=== PATIENT | male | born 1945 | race Hispanic/Latino ===

== ENCOUNTER 2018-11-21 19:37 | Inpatient (IN) | payer OTHER ==
[~2018-11-21] VITALS: Ht 157.5 cm; Wt 54.4 kg
[2018-11-21] MEDS ORDERED: VANCOMYCIN 1GM/NS 250 ML 250 ML IV STA (20:21)
[2018-11-21] MEDS ORDERED: SODIUM CHLORIDE 0.9% 1000ML 1,000 ML IV STA (20:21)
[2018-11-21 20:45] LABS: BASOPHILS # (AUTO) 0.1 (0.0-0.1); BASOPHILS % 0.5 % (0.0-1.0); EOSINOPHILS # (AUTO) 0.2 (0.0-0.4); EOSINOPHILS % 2.2 % (0.0-6.0); HEMATOCRIT 19.8 % (38.2-49.6); LYMPHOCYTES % 9.4 % (18.0-39.1); MEAN CORPUSCULAR HEMOGLOBIN 13.8 pg (28-32); MEAN CORPUSCULAR HGB CONC 23.7 g/dL (31-35); MEAN CORPUSCULAR VOLUME 58.1 fL (81-99); MONOCYTES # (AUTO) 0.5 (0.2-0.8); NEUTROPHILS # (AUTO) 8.8 (2.1-6.9); NEUTROPHILS % 82.3 % (38.7-80.0); PLATELET COUNT 481 x10e3/uL (140-360); RED BLOOD COUNT 3.41 x10e6/uL (4.3-5.7); RED CELL DISTRIBUTION WIDTH 22.6 % (11.7-14.4)
[2018-11-21 20:50] LABS: HEMOGLOBIN 4.7 g/dL (14.0-18.0)
[2018-11-21 20:59] LABS: ALANINE AMINOTRANSFERASE 6 IU/L (0-55); ALBUMIN 3.6 g/dL (3.5-5.0); ALKALINE PHOSPHATASE 54 IU/L (40-150); ANION GAP 17.2 mmol/L (8-16); BLOOD UREA NITROGEN 14 mg/dL (7-26); BUN/CREATININE RATIO 16 (6-25); CALCIUM 9.5 mg/dL (8.4-10.2); CARBON DIOXIDE 22 mmol/L (22-29); CHLORIDE 104 mmol/L (98-107); CREATININE, SERUM 0.88 mg/dL (0.72-1.25); EST GLOMERULAR FILTRATION RATE > 60 ML/MIN (60-); GLUCOSE 131 mg/dL (74-118); POTASSIUM 3.2 mmol/L (3.5-5.1); SODIUM 140 mmol/L (136-145)
[2018-11-21] MEDS ORDERED: SODIUM CHLORIDE 0.9% 250ML 250 ML IV ONE (21:00)
--- NOTE | 2018-11-21 21:01 | NUR ---
CONSENT OBTAINED FOR TRANSFUSION OF BLOOD PRODUCTS
[2018-11-21] MEDS ORDERED: SODIUM CHLORIDE 0.9% 50ML 50 ML ONE (21:08)
[2018-11-21] MEDS ORDERED: IOPAMIDOL 370 MG/ML 200 ML INFUS..BTL INJ ONE (21:08)
--- NOTE | 2018-11-21 21:44 | Diagnostic Imaging Report ---
Examination: Single AP view of the chest. COMPARISON: None. INDICATION: Cough DISCUSSION: Lines/tubes: None. Lungs: The lungs are well inflated and clear. No pneumonia or pulmonary edema. Pleura: No pleural effusion or pneumothorax. Heart and mediastinum: The heart and the mediastinum are unremarkable. Bones and soft tissues: No acute bony abnormalities. IMPRESSION: 1. No acute cardiopulmonary abnormalities. Signed by: Dr. Brandan Waters M.D. on 11/21/2018 9:41 PM
[2018-11-21 21:45] LABS: EOSINOPHILS % (MANUAL) 5 % (0-7); LYMPHOCYTES % (MANUAL) 8 % (19-48); MONOCYTES % (MANUAL) 5 % (3.4-9.0); NEUTROPHILS % (MANUAL) 82 % (40-74)
[2018-11-21 21:46] LABS: HYPOCHROMASIA MARKED
[2018-11-21 21:47] LABS: ANISOCYTOSIS MODERATE; POIKILOCYTOSIS SLIGHT
[2018-11-21 21:48] LABS: PLATELET ESTIMATE MODERATELY INCREASED; PLATELET MORPHOLOGY COMMENT FEW LARGE
--- NOTE | 2018-11-21 22:02 | Diagnostic Imaging Report ---
EXAMINATION: CT of the abdomen and pelvis with contrast. TECHNIQUE: Helical CT images of the abdomen and pelvis were performed from the lung bases to the lesser trochanters after the intravenous administration of 100 cc of Omnipaque 300 and the oral administration of none. Coronal and sagittal reformatted images were obtained. Dose modulation, iterative reconstruction, and/or weight based adjustment of the mA/kV was utilized to reduce the radiation dose to as low as reasonably achievable. COMPARISON: None. CLINICAL HISTORY:Testicular infection DISCUSSION: ABDOMEN/PELVIS: LOWER THORAX:Emphysematous change. HEPATOBILIARY: No focal hepatic lesions. No intra-or extrahepatic biliary ductal dilation. The gallbladder is normal. SPLEEN: No splenomegaly. PANCREAS: No focal masses or ductal dilatation. ADRENALS: No adrenal nodules. KIDNEYS/URETERS: No hydronephrosis, stones, or solid mass lesions. PELVIC ORGANS/BLADDER: The bladder is normal. Bilateral hydroceles. Scrotal/inguinal skin thickening. PERITONEUM/RETROPERITONEUM: No free air or fluid. LYMPH NODES: No intra-abdominal, retroperitoneal, pelvic or inguinal lymphadenopathy. VESSELS: Vascular calcifications. GI TRACT: Distention of the rectum with large stool. BONES AND SOFT TISSUE: Right femoral neck fixation. No acute fracture. Lower lumbar spondyloarthropathy. No soft tissue abnormalities. IMPRESSION: No acute intra-abdominal or pelvic CT finding. Scrotal/inguinal skin thickening may reflect cellulitis. Additional simple hydroceles. Distention of the rectum with stool, may be impacted. Signed by: Dr. Brandan Waters M.D. on 11/21/2018 9:59 PM
[2018-11-21] MEDS ORDERED: CEFEPIME 1GM/NS 0.9% 50 ML 50 ML IV STA (22:17)
[2018-11-21 22:22] LABS: BILIRUBIN,URINE NEGATIVE (NEGATIVE); CLARITY,URINE SL CLOUDY (CLEAR); COLOR,URINE YELLOW (YELLOW); KETONES,URINE NEGATIVE (NEGATIVE); LEUKOCYTE ESTERASE ,URINE LARGE (NEGATIVE); NITRITE,URINE NEGATIVE (NEGATIVE); PROTEIN,URINE DIPSTICK NEGATIVE (NEGATIVE); URINE UROBILINOGEN 0.2 mg/dL (0.2 - 1)
[2018-11-21] MEDS ORDERED: LACTULOSE SYRUP 20 GM/30 ML UDC PO PRN (22:30)
[2018-11-21] MEDS ORDERED: CITRATE OF MAGNESIA 300ML BOTTLE PO ONE (22:30)
[2018-11-21 22:37] LABS: BACTERIA,URINE FEW /HPF; WBC,URINE (MAN) >50 /HPF (0-5)
--- OUTSIDE RECORDS SUMMARY | 2018-11-21 22:47 | XMS REPORT ---
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 Allergies, Adverse Reactions, Alerts This patient has no known allergies or adverse reactions. Medications This patient has no known medications. Results Test Description Test Time Test Comments Text Results Atomic Results Result Comments CT ABDOMEN/PELVIS W 2018-11-21 21:46:00 [place] [address] Patient Name: DAKOTAH AUGUSTIN MR #: [id number] : 1945 Age/Sex: 73/M Req #: [id number] Adm Physician: Ordered by: ALBERTO DUARTE MD Report #: [id number] Location: ER Room/Bed: Procedure: [id number] CT/CT ABDOMEN/PELVIS W Exam Date: 11/21/18 Exam Time: 2124 REPORT STATUS: Signed EXAMINATION: CT of the abdomen and pelvis with contras t. TECHNIQUE: Helical CT images of the abdomen and pelvis were performed from the lung bases to the lesser trochanters after the intravenous administration of 100 cc of Omnipaque 300 and the oral administration of none. Coronal and sagittal reformatted images were obtained. Dose modulation, iterative reconstruction, and/or weight based adjustment of the mA/kV was utilized to reduce the radiation dose to as low as reasonably achievable. COMPARISON: None. CLINICAL HISTORY:Testicular infection DISCUSSION: ABDOMEN/PELVIS: LOWER THORAX:Emphysematous change. HEPATOBILIARY: No focal hepatic lesions. No intra-or extrahepatic biliary ductal dilation. The gallbladder is normal. SPLEEN: No splenomegaly. PANCREAS: No focal masses or ductal dilatation. ADRENALS: No adrenal nodules. KIDNEYS/URETERS: No hydronephrosis, stones, or solid mass lesions. PELVIC ORGANS/BLADDER: The bladder is normal. Bilateral hydroceles. Scr otal/inguinal skin thickening. PERITONEUM/RETROPERITONEUM: No free air or fluid. LYMPH NODES: No intra-abdominal, retroperitoneal, pelvic or inguinal lymphadenopathy. VESSELS: Vascular calcifications. GI TRACT: Distention of the rectum with large stool. BONES AND SOFT TISSUE: Right femoral neck fixation. No acute fracture. Lower lumbar spondyloarthropathy. No soft tissue abnormalities. IMPRESSION: No acute intra-abdominal or pelvic CT finding. Scrotal/inguinal skin thickening may reflect cellulitis. Additional simple hydroceles. Distention of the rectum with stool, may be impacted. Signed by: Dr. Fahad Saab M.D. on 11/21/2018 9:59 PM Dictated By: FAHAD SAAB MD 58 Transcribed By: CAESAR on 11/21/182158 COPY TO: ALBETRO DUARTE MD CHEST SINGLE (PORTABLE) 2018-11-21 21:40:00 [place] [address] Patient Name: DAKOTAH AUGUSTIN MR #: [id number] : 1945 Age/Sex: 73/M Req #: [id number] Adm Physician: Ordered by: ALBERTO DUARTE MD Report #: [id number] Location: ER Room/Bed: Procedure: [id number] DX/CHEST SINGLE (PORTABLE) Exam Date: 11/21/18 Exam Time: 2119 REPORT STATUS: Signed Examination: Single AP view of the chest. COM PARISON: None. INDICATION: Cough DISCUSSION: Lines/tubes: None. Lungs: The lungs are well inflated and clear. No pneumonia or pulmonary edema. Pleura: No pleural effusion or pneumothorax. Heart and mediastinum: The heart and the mediastinum are unremarkable. Bones and soft tissues: No acute bony abnormalities. IMPRESSION: 1. No acute cardiopulmonary abnormalities. Signed by: Dr. Fahad Saab M.D. on 11/21/2018 9:41 PM Dictated By: FAHAD SAAB MD 40 Transcribed By: CAESAR on 11/21/182140 COPY TO: ALBERTO DUARTE MD
[2018-11-21] MEDS ORDERED: CLOPIDOGREL75 MG PO (23:13)
[2018-11-21] MEDS ORDERED: MULTIVITAMINS1 EAC7 PO (23:13)
[2018-11-21] MEDS ORDERED: SIMVASTATIN40 MG PO (23:13)
[2018-11-21 23:29] VITALS: BP 159/70
[2018-11-21 23:47] VITALS: BP 159/70
[2018-11-22] VITALS (8 sets, daily range): BP systolic 135–159; BP diastolic 64–82
[2018-11-22] MEDS: SODIUM CHLORIDE 0.9% 1000ML 1,000 ML IV SCH ×2 (00:19→05:52)
[2018-11-22] MEDS ORDERED: SODIUM CHLORIDE 0.9% 250ML 250 ML ONE ×3 (01:10→11:24)
--- NOTE | 2018-11-22 07:40 | NUR ---
PATIENT IS AWAKE, ALERT, AND IN STABLE CONDITION WITH NO S/S RESPIRATORY DISTRESS. PATIENT DENIES PAIN. BLOOD TRANSFUSION CURRENTLY INFUSING. PATIENT'S SCROTUM AREA IS RED AND INFLAMED. PATIENT HAD A BM THIS MORNING- PATIENT CLEANED, DIAPER APPLIED, ALLEVYN PADS APPLIED TO BILATERAL BUTTOCKS (BLANCHABLE REDNESS NOTED), AND PATIENT REPOSITION IN BED. AIR PUMP APPLIED. BED ALARM APPLIED. CALL LIGHT IS WITHIN REACH OF PATIENT AND PATIENT INFORMED TO CALL FOR ASSISTANCE NEEDED.
[2018-11-22] MEDS: FLUCONAZOLE 100 MG/NS 50 ML 50 ML IV SCH (08:27)
[2018-11-22] MEDS ORDERED: VANCOMYCIN 1GM/NS 250 ML 250 ML IV SCH (09:00)
[2018-11-22 10:37] LABS: BASOPHILS # (AUTO) 0.1 (0.0-0.1); BASOPHILS % 0.5 % (0.0-1.0); EOSINOPHILS # (AUTO) 0.2 (0.0-0.4); EOSINOPHILS % 2.3 % (0.0-6.0); HEMATOCRIT 21.5 % (38.2-49.6); LYMPHOCYTES # (AUTO) 0.8 (1.0-3.2); LYMPHOCYTES % 7.3 % (18.0-39.1); MEAN CORPUSCULAR HEMOGLOBIN 19.6 pg (28-32); MEAN CORPUSCULAR HGB CONC 28.4 g/dL (31-35); MEAN CORPUSCULAR VOLUME 68.9 fL (81-99); MONOCYTES # (AUTO) 0.7 (0.2-0.8); MONOCYTES % 6.5 % (4.4-11.3); NEUTROPHILS # (AUTO) 8.8 (2.1-6.9); NEUTROPHILS % 82.8 % (38.7-80.0); PLATELET COUNT 339 x10e3/uL (140-360); RED BLOOD COUNT 3.12 x10e6/uL (4.3-5.7); RED CELL DISTRIBUTION WIDTH 31.4 % (11.7-14.4)
[2018-11-22 10:42] LABS: HEMOGLOBIN 6.1 g/dL (14.0-18.0)
[2018-11-22 10:53] LABS: ALBUMIN 2.9 g/dL (3.5-5.0); ALKALINE PHOSPHATASE 41 IU/L (40-150); ANION GAP 10.3 mmol/L (8-16); BLOOD UREA NITROGEN 26 mg/dL (7-26); BUN/CREATININE RATIO 40 (6-25); CALCIUM 8.1 mg/dL (8.4-10.2); CARBON DIOXIDE 23 mmol/L (22-29); CHLORIDE 111 mmol/L (98-107); CREATININE, SERUM 0.65 mg/dL (0.72-1.25); EST GLOMERULAR FILTRATION RATE > 60 ML/MIN (60-); GLUCOSE 103 mg/dL (74-118); POTASSIUM 3.3 mmol/L (3.5-5.1); SODIUM 141 mmol/L (136-145)
[2018-11-22 10:56] LABS: ALANINE AMINOTRANSFERASE < 6 IU/L (0-55)
--- NOTE | 2018-11-22 11:05 | NUR ---
RECEIVED ORDER FROM DR. BOSWELL FOR ONE UNIT OF PRBC AND 40MEQ OF KDUR x1
[2018-11-22] MEDS ORDERED: POTASSIUM CHLORIDE 20 MEQ TAB CR PO NR (11:15)
[2018-11-22] MEDS ORDERED: SODIUM CHLORIDE 0.9% 250ML 250 ML IV NR (11:15)
[2018-11-22] MEDS: PANTOPRAZOLE SOD 40 MG TABEC PO SCH (12:48)
[2018-11-22] MEDS ORDERED: PIPER-TAZ 3.375 GM 50 ML IV SCH (14:00)
--- NOTE | 2018-11-22 15:22 | Consultation ---
DATE OF CONSULTATION: 11/22/2018 Urology consultation Consult was called by Dr. Mcclure. CHIEF COMPLAINT AND REASON FOR CONSULTATION: Scrotal cellulitis. HISTORY OF PRESENT ILLNESS: Jose Blackburn is a 73-year-old male, admitted to the hospital on November 21 at 7:[address] Hurtado in the emergency room with a diagnosis of infection in testicles with no call to urologist. Urologic consultation was requested the following morning. The patient denied dysuria. He is a total care patient wearing diapers. No hematuria noted. PAST MEDICAL HISTORY: Unknown. There is no ER note on the chart. The patient has blood transfusion hanging. PAST SURGICAL HISTORY: Unknown. MEDICATIONS: Please see MAR. Most notable for Plavix. ALLERGIES: UNKNOWN. REVIEW OF SYSTEMS: A 03/06 organ systems unable to obtain secondary to the patient inability. PHYSICAL EXAMINATION: GENERAL: Cachectic elderly man in no acute distress. VITAL SIGNS: Currently, he is afebrile with stable vital signs. HEENT: Sclerae anicteric. NECK: Supple. BACK: Without costovertebral angle tenderness bilaterally. ABDOMEN: Soft, it is nontender, it is nondistended. : The patient is in diapers, wet. The scrotum is erythematous with blisters. Severe case of diaper rash. EXTREMITIES: Contracted. No edema. NEURO: Does not move extremities to command. PSYCH: Unable to assess. SKIN: Pale. PERTINENT LABORATORY DATA: Hemoglobin 4.7, hematocrit 19, platelet count 481,000. White blood cell count 10,620. Sodium 140, potassium 3.2, chloride 104, bicarb 22, BUN 14, creatinine 0.8, glucose 131, lactic acid 31. Urinalysis 6 to 10 reds, greater than [address] scan revealing bilateral hydroceles, scrotal wall thickening, right femoral neck fixation. IMPRESSION: 1. Severe scrotal cellulitis. 2. Urinary incontinence. 3. Urinary tract infection. 4. Microscopic hematuria. 5. Medically-induced coagulopathy. 6. Profound anemia. 7. Hypokalemia. 8. Bilateral hydroceles. PLAN: The patient will remain on broad-spectrum antibiotics, agree with this. We will continue these antibiotics until specific MRI can be performed. Defer the source of anemia to primary service. We will be happy to follow along with you. MD FLORES Burciaga/VINH /[id number] cc: Alana Mcclure MD
[2018-11-22] MEDS: IRON SUCROSE 100 MG in SODIUM CHLORIDE 0.9% 100 ML 100 ML IV SCH (15:30)
[2018-11-22] MEDS: ALBUTEROL/IPRATROPIUM 3 ML NEB NEB SCH ×2 (15:50→20:30)
[2018-11-22] MEDS: PIPER-TAZ 3.375 GM 50 ML IV SCH (16:48)
[2018-11-22] MEDS: LACTOBACILLUS ACIDOPHILUS CAPSULE PO SCH (16:48)
--- NOTE | 2018-11-22 19:10 | NUR ---
PATIENT IS RESTING IN BED- IN STABLE CONDITION WITH NO S/S RESPIRATORY DISTRESS. NO PAIN VOICED. DIAPER APPLIED. URINAL AVAILABLE NEAR BEDSIDE. BED ALARM ON. CALL LIGHT IS WITHIN REACH, PATIENT INSTRUCTED TO CALL FOR ASSISTANCE NEEDED. BEDSIDE REPORT GIVEN TO ONCOMING NURSE.
[2018-11-22] MEDS: SIMVASTATIN 40 MG TAB PO SCH (20:11)
[2018-11-22] MEDS: VANCOMYCIN 1GM/NS 250 ML 250 ML IV SCH (20:11)
[2018-11-22] MEDS: BALSAM PERU/CASTOR OIL 60 GM OINT...G. TP SCH (22:58)
[2018-11-23] VITALS (8 sets, daily range): BP systolic 126–164; BP diastolic 61–83
[2018-11-23] MEDS: PIPER-TAZ 3.375 GM 50 ML IV SCH ×4 (01:40→21:41)
[2018-11-23 05:52] LABS: BASOPHILS # (AUTO) 0.1 (0.0-0.1); BASOPHILS % 0.7 % (0.0-1.0); EOSINOPHILS # (AUTO) 0.6 (0.0-0.4); EOSINOPHILS % 5.6 % (0.0-6.0); HEMATOCRIT 23.5 % (38.2-49.6); LYMPHOCYTES % 10.4 % (18.0-39.1); MEAN CORPUSCULAR HGB CONC 29.8 g/dL (31-35); MEAN CORPUSCULAR VOLUME 70.6 fL (81-99); MONOCYTES # (AUTO) 0.8 (0.2-0.8); MONOCYTES % 7.6 % (4.4-11.3); NEUTROPHILS # (AUTO) 7.4 (2.1-6.9); NEUTROPHILS % 75.4 % (38.7-80.0); PLATELET COUNT 309 x10e3/uL (140-360); RED BLOOD COUNT 3.33 x10e6/uL (4.3-5.7); RED CELL DISTRIBUTION WIDTH 30.7 % (11.7-14.4)
[2018-11-23 06:18] LABS: ANION GAP 9.2 mmol/L (8-16); BLOOD UREA NITROGEN 11 mg/dL (7-26); BUN/CREATININE RATIO 17 (6-25); CALCIUM 7.8 mg/dL (8.4-10.2); CARBON DIOXIDE 24 mmol/L (22-29); CHLORIDE 109 mmol/L (98-107); CREATININE, SERUM 0.65 mg/dL (0.72-1.25); EST GLOMERULAR FILTRATION RATE > 60 ML/MIN (60-); GLUCOSE 88 mg/dL (74-118); MAGNESIUM 2.3 MG/DL (1.3-2.1); POTASSIUM 3.2 mmol/L (3.5-5.1); SODIUM 139 mmol/L (136-145)
--- NOTE | 2018-11-23 06:36 | NUR ---
Spoke with Dr. Rascon regarding hgb and hct. No orders received.
[2018-11-23] MEDS: ALBUTEROL/IPRATROPIUM 3 ML NEB NEB SCH ×4 (07:01→19:15)
--- NOTE | 2018-11-23 07:30 | NUR ---
REC'D PATIENT AAOX2, REC'V BREATHING TREATMENT AND TOLERATING WELL, ON HIGH-GABRIEL'S POSITION, NO S/S OF DISTRESS. IV TO THE LEFT FA DRY AND INTACT AND PATENT.
[2018-11-23] MEDS: PANTOPRAZOLE SOD 40 MG TABEC PO SCH (08:04)
[2018-11-23] MEDS: LACTOBACILLUS ACIDOPHILUS CAPSULE PO SCH ×2 (08:04→17:02)
[2018-11-23] MEDS: MULTIVITAMINS/MINERALS TAB PO SCH (08:04)
[2018-11-23] MEDS: FLUCONAZOLE 100 MG/NS 50 ML 50 ML IV SCH (08:04)
[2018-11-23] MEDS: BALSAM PERU/CASTOR OIL 60 GM OINT...G. TP SCH ×2 (08:09→17:02)
--- NOTE | 2018-11-23 08:13 | NUR ---
DR. PICKENS NOTIFIED NURSE THAT PT REFUSED TO HAVE A -SCOPY PROCEDURE.
[2018-11-23] MEDS: VANCOMYCIN 1GM/NS 250 ML 250 ML IV SCH (09:08)
--- NOTE | 2018-11-23 09:10 | NUR ---
CHANGED PATIENT'S BRIEF AND APPLIED TREATMENT OINTMENT FOR SCROTUM REDNESS. REPOSITIONED HEEL PROTECTORS. ELEVATED HOB TO HIGH-FOWLERS POSITION. BED IN LOWEST POSITION, SIDE RAILS UP X2, AND CALL MARTIN WITHIN REACH.
[2018-11-23] MEDS ORDERED: POTASSIUM CHLORIDE 20 MEQ TAB CR PO ONE (12:00)
[2018-11-23] MEDS: IRON SUCROSE 100 MG in SODIUM CHLORIDE 0.9% 100 ML 100 ML IV SCH (13:13)
--- NOTE | 2018-11-23 14:27 | Consultation ---
DATE OF CONSULTATION: 11/23/2018 HISTORY OF PRESENT ILLNESS: The patient is a 73-year-old, who presented to the hospital because of problems with infections in his testicle. The patient, however, was found to have anemia with hemoglobin as low as 4.7 on admission with low MCV. He received blood transfusions and hemoglobin went up to 7 and he said that he does not have any abdominal pain, does not have any nausea or vomiting and he said that he did have a colonoscopy in the past, which was supposedly normal. He did have a CAT scan of the abdomen and pelvis, which only shows scrotal inguinal area of cellulitis and otherwise is unremarkable. PAST MEDICAL HISTORY: Significant for history of hypercholesterolemia, history of COPD. MEDICATIONS: Currently is on Protonix, DuoNeb, Zocor, also on antibiotic and has been receiving some iron. ALLERGIES: NONE. SOCIAL HISTORY: No alcohol use. FAMILY HISTORY: Noncontributory. REVIEW OF SYSTEMS: Denies any chest pain or shortness of breath. Denies any dysphagia, odynophagia. Denies any dysuria, hematuria, or any syncopal episodes. PHYSICAL EXAMINATION: GENERAL: Awake, alert, appears to be stable, not in acute distress at this point. VITAL SIGNS: Afebrile currently with stable vital signs. HEAD, EYES, EARS, NOSE, AND THROAT: Normocephalic, atraumatic. Sclera is anicteric. NECK: Supple. HEART: Regular. LUNGS: Clear. ABDOMEN: Soft. There is no distention at this point and is nontender. EXTREMITIES: No cyanosis. No clubbing. LAB VALUES: As of this morning, potassium 3.2, BUN and creatinine 11 and 0.65. WBC of 9.85, hemoglobin of 7 and hematocrit of 23.5, MCV of 70.6. IMPRESSION: 1. Iron deficiency anemia. There is no sign of bleeding at this point. The patient refused endoscopy at this point. 2. Testicular cellulitis or infection. RECOMMENDATION: Continue antibiotic at this point, follow labs, watch for bleeding. He will need to have endoscopy and as an outpatient, possibly for both EGD and colonoscopy iron deficiency anemia. Juan Manuel Santoro MD DHJeff/MODL /[id number] cc: Alana Mcclure MD
--- NOTE | 2018-11-23 14:41 | NUR ---
PATIENT IS ASLEEP WITH EYES CLOSED. AND UNLABORED BREATHING. AT THE BEDSIDE. SIDE RAILS UP X2, BED IN LOWEST POSITION, AND CALL MARTIN WITHIN REACH.
--- NOTE | 2018-11-23 15:19 | NUR ---
Nutrition Intervention Note RD Recommendation(s) for Physician: The patient meets criteria for MODERATE protein-calorie malnutrition. -Continue current diet as ordered -Pt refused any oral nutrition supplements Plan of Care: RD following, monitoring for tolerance and adequacy Nutrition reason for involvement: Nutrition Risk Trigger MST RD Assessment 11/23 73yo M, who was admitted for testicles infection. Visited pt in the room. Per , pt has always been a small eater. Pt eats very little at home as well. This has been going on for many years. His weight has been stable within the last year. Pt has no teeth and requests for softer foods. Downgraded diet texture to mechanical soft on HT. No swallowing difficulty noted. Son has been buying Ensure for pt to drink at home but pt doesnt drink any of those. No history of CKD, CAD or DM per . Pt appears to be thin with moderate muscle and fat loss upon NFPA (see below). Will continue to monitor and follow. Principal Problems/Diagnoses: Anemia, testicular cellulitis PMH: hypercholesterolemia, COPD GI: abdomen flat, soft, LBM 11/23 Skin: no pressure wound noted Labs: (11/23) K 3.2 L, Creatinine 0.65 L, Ca 7.8 L, Mg 2.3 H Meds: (11/23) MVi w/minerals, protonix, probiotics Ht: 62in Wt: 120lb BMI: 21.9kg/m2 IBW: 118lb +/- 10% Malnutrition Evaluation (11/23) The patient meets criteria for MODERATE protein-calorie malnutrition. Energy intake: <75% of estimated energy requirements for >3 months Weight loss: Stable weight; pt is thin his whole life. Fat loss: Moderate orbital with dark capitan grande and somewhat hollow, apparent ribs, protusion of clavicle Muscle loss: Moderate squaring of shoulder, temporal depression Supporting Evidence: Fluid accumulation: None Functional Status: no changes Nutrition Prescription (Diet Order): cardiac diet Estimated Nutritional Needs: Calories: 1350 1620kcal(25-30kcal/kg/d) Weight used : CBW Protein: 81 - 108g (1.5-2g/kg/d) Weight used: CBW Diet Adequacy: Not meeting calorie needs, Not meeting protein needs Diet Education Needs Assessment: Diet education not indicated. Nutrition Care Level: low Nutrition Diagnosis: Moderate malnutrition related to inadequate energy intake as evidenced by <75% of estimated energy requirements for >3 months and moderate fat/ muscle loss upon NFPA. Goal: Patient will meet 75-100% of estimated needs by follow up Progress: n/a Interventions: Modified diet Monitoring/Evaluation: Total energy intake, Total protein intake, Modified diet, Weight change Signed: Karla Garcia MS, RD, LD
[2018-11-23] MEDS: NYSTATIN 15 GM POWDER UD BTL TOP SCH (17:02)
--- NOTE | 2018-11-23 17:30 | NUR ---
WOUND CARE PERFORMED TO PERINEAL AREA/SCROTUM
--- NOTE | 2018-11-23 17:42 | NUR ---
PATIENT IS EATING HER DINNER, NO S/S OF DISTRESS, STATES THAT HER PAIN HAS DECREASED AFTER PAIN MEDICATION ADMINISTRATION. FAMILY AT THE BEDSIDE. SIDE RAILS UP X2, BED IN LOWEST POSITION, CALL MARTIN WITHIN REACH. Addendum: 11/23/18 at 1749 by DERRICK WILL RN DOCUMENTATION DONE ON WRONG PATIENT.
--- NOTE | 2018-11-23 17:49 | NUR ---
PATIENT IS UP ON HIGH-FOWLERS POSITION, IS AT THE BEDSIDE, NO S/S OF DISTRESS. BED IN LOWEST POSITION, SIDE RAILS UP X2, AND CALL MARTIN WITHIN REACH.
--- NOTE | 2018-11-23 18:50 | NUR ---
Bedside rounds completed with morning nurse. Pt alert and orient to name. Lying in bed HOB 30 degrees. Denies pain at this time. Asked to empty urinal, 100 ml urine yellow without odor. Call ahumada within reach. Bed low and locked. Will continue to monitor.
[2018-11-23] MEDS: SIMVASTATIN 40 MG TAB PO SCH (21:41)
[2018-11-24] VITALS (7 sets, daily range): BP systolic 141–183; BP diastolic 65–81
[2018-11-24 05:22] LABS: BASOPHILS # (AUTO) 0.1 (0.0-0.1); BASOPHILS % 1.2 % (0.0-1.0); EOSINOPHILS # (AUTO) 0.8 (0.0-0.4); EOSINOPHILS % 10.5 % (0.0-6.0); HEMATOCRIT 25.4 % (38.2-49.6); HEMOGLOBIN 7.3 g/dL (14.0-18.0); LYMPHOCYTES % 13.3 % (18.0-39.1); MEAN CORPUSCULAR HEMOGLOBIN 20.7 pg (28-32); MEAN CORPUSCULAR HGB CONC 28.7 g/dL (31-35); MEAN CORPUSCULAR VOLUME 72.2 fL (81-99); MONOCYTES # (AUTO) 0.6 (0.2-0.8); MONOCYTES % 7.7 % (4.4-11.3); NEUTROPHILS # (AUTO) 5.1 (2.1-6.9); NEUTROPHILS % 66.8 % (38.7-80.0); PLATELET COUNT 305 x10e3/uL (140-360); RED BLOOD COUNT 3.52 x10e6/uL (4.3-5.7); RED CELL DISTRIBUTION WIDTH 31.6 % (11.7-14.4)
[2018-11-24 05:44] LABS: ANION GAP 8.4 mmol/L (8-16); BLOOD UREA NITROGEN 7 mg/dL (7-26); BUN/CREATININE RATIO 10 (6-25); CALCIUM 8.1 mg/dL (8.4-10.2); CARBON DIOXIDE 25 mmol/L (22-29); CHLORIDE 107 mmol/L (98-107); CHOL/HDL RATIO 2.3 (3.9-4.7); CHOLESTEROL 90 MD/DL (0-199); CREATININE, SERUM 0.72 mg/dL (0.72-1.25); EST GLOMERULAR FILTRATION RATE > 60 ML/MIN (60-); GLUCOSE 78 mg/dL (74-118); HDL CHOLESTEROL 40 MG/DL (40-60); LDL CHOLESTEROL 42 MG/DL (60-130); POTASSIUM 3.4 mmol/L (3.5-5.1); SODIUM 137 mmol/L (136-145); TRIGLYCERIDES 42 MG/DL (0-149)
[2018-11-24] MEDS: PIPER-TAZ 3.375 GM 50 ML IV SCH ×3 (06:00→22:04)
[2018-11-24] MEDS: ALBUTEROL/IPRATROPIUM 3 ML NEB NEB SCH (06:58)
--- NOTE | 2018-11-24 07:15 | NUR ---
Bedside rounding completed with the off-going nurse and the pt. denies pain or discomfort at this time.
[2018-11-24] MEDS: PANTOPRAZOLE SOD 40 MG TABEC PO SCH (07:30)
[2018-11-24 08:02] LABS: EOSINOPHILS % (MANUAL) 10 % (0-7); LYMPHOCYTES % (MANUAL) 17 % (19-48); MONOCYTES % (MANUAL) 10 % (3.4-9.0); NEUTROPHILS % (MANUAL) 63 % (40-74); PLATELET ESTIMATE ADEQUATE; PLATELET MORPHOLOGY COMMENT NORMAL; RBC MORPHOLOGY COMMENT NORMAL
[2018-11-24] MEDS: LACTOBACILLUS ACIDOPHILUS CAPSULE PO SCH ×2 (09:13→17:28)
[2018-11-24] MEDS: NYSTATIN 15 GM POWDER UD BTL TOP SCH ×2 (09:13→17:28)
[2018-11-24] MEDS: MULTIVITAMINS/MINERALS TAB PO SCH (09:13)
[2018-11-24] MEDS: BALSAM PERU/CASTOR OIL 60 GM OINT...G. TP SCH ×2 (09:14→17:28)
[2018-11-24] MEDS ORDERED: POTASSIUM CHLORIDE 20 MEQ TAB CR PO STA (11:10)
[2018-11-24] MEDS ORDERED: ALBUTEROL/IPRATROPIUM 3 ML NEB NEB PRN (11:15)
--- NOTE | 2018-11-24 11:29 | NUR ---
DISCUSSED IN BARRIER ROUNDS, PT HGB IS 7.1 ON DAY 3 OF INFUSIONS, HAS RT SIDED WEAKNESS, ON TELE FOR SINUS TAC, ON ABX, POTASSIUM AND NEBS, PROJECTED DISCHARGE IS TOMORROW
[2018-11-24] MEDS: IRON SUCROSE 100 MG in SODIUM CHLORIDE 0.9% 100 ML 100 ML IV SCH (11:58)
[2018-11-24] MEDS: LOSARTAN POTASSIUM 25 MG TAB PO SCH (11:58)
--- NOTE | 2018-11-24 13:40 | NUR ---
CM SPOKE TO PATIENT AND PATIENT GARRISON AUGUSTIN REGARDING DISCHARGE PLAN AND PLAN FO CARE. PATIENT AWARE AND PATIENT AND PATIENT AGREE TO HAVE HOME HEALTH SERVICES FOR SN EVAL AND WOUND CARE. PATIENT AND PATIENT GIVEN CHOICES AT BEDSIDE. PATIENT AND PATIENT CHOSE TO STAY IN NETWORK AND HAVE [facility] BE THEIR HOME HEALTH COMPANY. CHOICE LETTER SIGNED BY DESIGNATED BY DUE TO WEAKNESS. CLINICAL SENT TO [facility] AND LIA[facility] FOR [facility] NOTIFIED. [facility] (P) [phone] (F) [phone] LIAISON: [facility] [place]
--- NOTE | 2018-11-24 19:00 | NUR ---
Patient visited in room during nursing rounds. Patient alert and oriented x3. No distress or discomfort noted. Scrotum appear inflammed and raw. Scrotum being treated BID with Nystatin powder and Venelex ointment. Pt is bed bound and but able to turn in bed Q2hr. Pt on diaper and uses urinal prn. Call ahumada within reach. Bed alarm active.
[2018-11-24] MEDS: SIMVASTATIN 40 MG TAB PO SCH (20:22)
[2018-11-25] VITALS: BP 150/70
[2018-11-25 04:00] VITALS: BP 161/79
[2018-11-25] MEDS: PANTOPRAZOLE SOD 40 MG TABEC PO SCH (06:38)
[2018-11-25] MEDS: PIPER-TAZ 3.375 GM 50 ML IV SCH ×2 (06:38→13:16)
--- NOTE | 2018-11-25 06:50 | NUR ---
RECEIVED PATIENT RESTING IN BED. NO ACUTE DISTRESS NOTED. NO S/S OF PAIN NOTED AT THIS TIME. CALL LIGHT WITHIN REACH. BED IN THE LOWEST POSITION. BED ALARM ON.
[2018-11-25 07:53] VITALS: BP 169/85
[2018-11-25] MEDS: LACTOBACILLUS ACIDOPHILUS CAPSULE PO SCH (08:14)
[2018-11-25] MEDS: NYSTATIN 15 GM POWDER UD BTL TOP SCH (08:14)
[2018-11-25] MEDS: MULTIVITAMINS/MINERALS TAB PO SCH (08:14)
[2018-11-25] MEDS: LOSARTAN POTASSIUM 25 MG TAB PO SCH (08:14)
[2018-11-25] MEDS: BALSAM PERU/CASTOR OIL 60 GM OINT...G. TP SCH (08:15)
[2018-11-25 08:59] VITALS: BP 169/85
[2018-11-25] MEDS ORDERED: LOSARTAN POTASSIUM 25 MG TAB PO ONE (10:30)
--- NOTE | 2018-11-25 10:30 | NUR ---
CM SPOKE TO PATIENT AT BEDSIDE REGARDING IMM LETTER. IMM LETTER GIVEN WITH EXPLANATION BASED ON ANTICIPATED DISCHARGE DATE. ORIGINAL SIGNED AND PLACED IN CHART; COPY OF ORIGINAL DOCUMENT GIVEN TO PATIENT AT BEDSIDE AND PLACED IN CARE TRANSITION FOLDER. CM CONTACT INFORMATION GIVEN TO PATIENT FOR ANY NEEDS OR CONCERNS. PATIENT WITH NO FURTHER QUESTIONS.
[2018-11-25 11:22] VITALS: BP 156/78
--- NOTE | 2018-11-25 15:03 | NUR ---
RECEIVED DC ORDER FROM MD. PATIENT IS IN STABLE CONDITION. IV LINE TO LEFT FOREARM DCD WITH TIP INTACT, PRESSURE APPLIED TO SITE, NO BLEEDING NOTED. DISCHARGE TEACHING PROVIDED TO PATIENT AND SON AWAIS, THEY BOTH VERBALIZED UNDERSTANDING. DISCHARGE FOLDER WITH DC PAPERWORK AND PRESCRIPTIONS ON HAND. ALL PERSONAL ITEMS ON HAND. PATIENT ACCOMPANIED TO PRIVATE AUTO VIA WHEELCHAIR BY STAFF.
--- NOTE | 2018-11-25 15:25 | Discharge Summary ---
PRIMARY CARE DOCTOR: Dr. Jose De Jesus Bowles. FINAL DIAGNOSIS: Symptomatic microcytic anemia. SECONDARY DIAGNOSES: 1. Scrotal cellulitis. 2. Urinary tract infection. 3. Chronic obstructive pulmonary disease. 4. Old stroke. 5. Hypertension. 6. Hypokalemia. CONSULTANTS: 1. Dr. Santoro, GI. 2. Dr. Munoz, Urology. PROCEDURE/STUDIES PERFORMED: CT of the abdomen and pelvis, which is consistent with scrotal cellulitis. HISTORY: Per H and P. HOSPITAL COURSE: The patient came in with a hemoglobin of 4.7. The patient was transfused 3 units. Currently, his hemoglobin is 7.3 and remain stable. The patient does have microcytosis. Unfortunately, iron studies were not able to be checked due to the fact that he already received blood transfusion. Empirically, the patient was given intravenous iron infusion. As far as his scrotal cellulitis, the patient was evaluated by Urology, no evidence of Casimiro gangrene. This is likely due to his bed-bound status after his stroke with chronic wetness from his diaper. Broad-spectrum antibiotic was started and he will go home on Augmentin for three more days. This will also treat his Providencia and Streptococcus UTI. His Plavix will continue to be held when he goes home. I have discussed the risks and the benefits with the son at the bedside today in details. I have also communicated with his primary care doctor, the patient will follow up with him in a week. At that time, if his hemoglobin remains stable, we can consider restarting his Plavix. Protonix has been prescribed as well. Again, unfortunately, the patient refused EGD, endoscopy. The patient was seen and examined today. It took 35 minutes total to discharge this patient. The patient will go home with home health for wound care. The son understands that we need to change his diaper as often as possible to keep the area dry. CONDITION ON DISCHARGE: Improved. DISCHARGE MEDICATIONS: Please see medication reconciliation form. MD CHRIS Hernandez/VINH /[id number] cc: [facility]
[2018-11-26] MEDS ORDERED: LOSARTAN POTASSIUM 25 MG TAB PO SCH (09:00)
== END 2018-11-25 15:05 | disposition home health service (06) | DRG 727 ==
LOC: ER 19:37 → ERHOLD 22:45 → MED/SURG3 23:49
PROVIDERS: ADMIT Internal Medicine; ATTEND Internal Medicine
PROC: 30233N1 Transfusion of Nonautologous Red Blood Cells into Peripheral Vein, Percutaneous Approach (ICD-10-PCS; principal; 2018-11-22)
DX: N49.2 Inflammatory disorders of scrotum (principal); D61.3 Idiopathic aplastic anemia; I69.351 Hemiplegia and hemiparesis following cerebral infarction affecting right dominant side; N39.0 Urinary tract infection, site not specified; D68.4 Acquired coagulation factor deficiency; E44.0 Moderate protein-calorie malnutrition; Z74.01 Bed confinement status; E78.5 Hyperlipidemia, unspecified; D50.0 Iron deficiency anemia secondary to blood loss (chronic); R32 Unspecified urinary incontinence; R31.29 Other microscopic hematuria; E87.6 Hypokalemia; N43.3 Hydrocele, unspecified; B96.89 Other specified bacterial agents as the cause of diseases classified elsewhere; B95.4 Other streptococcus as the cause of diseases classified elsewhere; Z68.21 Body mass index [BMI] 21.0-21.9, adult
CPT/HCPCS: 36415; 71045; 74177; 80048; 80053; 80061; 81001; 83605; 83735; 84443; 85025; 86850; 86900; 86920; 87040; 87086; 87186; 94640; 97139; 99284; J0692; J1450; J1756; J2543; J3370; J7030; J7050; P9016; Q9967